=== PATIENT | male | born 1960 | race African-American/Black ===

== ENCOUNTER 2023-10-12 15:40 | Emergency (ER) | payer BC ==
[~2023-10-12] VITALS: Ht 188 cm; Wt 94.8 kg
[2023-10-12 15:42] VITALS: TEMP 98.4
[2023-10-12] MEDS ORDERED: ETOMIDATE 2 MG/ML VIAL ONE (15:55)
[2023-10-12] MEDS: ETOMIDATE 2 MG/ML VIAL IV ONE (16:06)
[2023-10-12] MEDS ORDERED: METO100T7 PO (16:19)
[2023-10-12] MEDS ORDERED: APIX5TAB PO (16:19)
[2023-10-12] MEDS ORDERED: APIXABAN 5 MG TABLET ONE (16:23)
[2023-10-12] MEDS: APIXABAN 5 MG TABLET PO SCH (16:26)
[2023-10-12 17:20] VITALS: BP 130/85; O2SAT 100
== END 2023-10-12 16:37 | disposition home or self-care (01) ==
LOC: ER 15:42
DX: I48.91 Unspecified atrial fibrillation (principal); Z79.899 Other long term (current) drug therapy
CPT/HCPCS: 99291; 92960; 99152; 93005; J3490; G0500